=== PATIENT | male | born 1970 | race Caucasian/White ===

== ENCOUNTER → 2017-01-24 | Outpatient (CLI) | payer OTHER ==
[~2017-01-24] MED LIST: HYDR25TA4 PO; LOSA1TAB PO; PRLSR20 PO
--- NOTE | 2017-01-24 12:38 | DIAGNOSTIC IMAGING REPORT ---
CHEST 2 VIEWS ROUTINE CLINICAL HISTORY: Shortness of breath. COMPARISON STUDY: Chest CT February 23, 2016. FINDINGS: Mild cardiomegaly is unchanged. Opacity along the left heart border represents epicardial fat pad as shown on prior chest CT. There is no pneumothorax or pleural effusion. Pulmonary vascularity is normal. There is no consolidation. The appearance of the chest is unchanged. IMPRESSION: 1. No acute cardiopulmonary findings. 2. Stable mild cardiomegaly. Electronically signed by: Jonathon Adame M.D. 01/24/2017 12:37 PM Dictated Date/Time: 01/24/2017 12:35 PM
[2017-01-24 13:06] LABS: MEAN CELL VOLUME 78.9 fL (80-100); MEAN CORPUSCULAR HEMOGLOBIN 26.9 pg (25-34); MEAN CORPUSCULAR HGB CONC 34.1 g/dl (32-36); MEAN PLATELET VOLUME 9.8 fL (7.4-10.4); PLATELET COUNT 283 K/uL (130-400); RED BLOOD COUNT 5.58 M/uL (4.7-6.1); WHITE BLOOD COUNT 6.01 K/uL (4.8-10.8)
[2017-01-24 13:21] LABS: ESTIMATED AVERAGE GLUCOSE 114 mg/dl; HA1C FLAG Normal (Normal)
[2017-01-24 13:36] LABS: ALT/SGPT 42 U/L (12-78); BLOOD UREA NITROGEN 8 mg/dl (7-18); CALCIUM 9.1 mg/dl (8.5-10.1); CARBON DIOXIDE 27 mmol/L (21-32); CHLORIDE 106 mmol/L (98-107); CHOLESTEROL 159 mg/dl (0-200); CREATININE 0.88 mg/dl (0.60-1.40); GLUCOSE 94 mg/dl (70-99); SODIUM 140 mmol/L (136-145)
[2017-01-24 13:39] LABS: ALB/GLOB RATIO 0.9 (0.9-2); ALKALINE PHOSPHATASE 99 U/L (45-117); AST/SGOT 22 U/L (15-37); CHOLESTEROL/HDL RATIO 4.7; HDL CHOLESTEROL 34 mg/dl; LDL CHOLESTEROL CALCULATED 98 mg/dl; TRIGLYCERIDES 133 mg/dl (0-150); VERY LOW DENSITY LIPOPROT CALC 27 mg/dl
--- NOTE | 2017-01-30 11:52 | CODING QUERY MEDICAL NECESSITY ---
CQSUPPORTING DIAGNOSIS NEEDED A supporting diagnosis is required for the test/procedure performed on this patient in order for us to be reimbursed by the patient's insurance. Please provide a supporting diagnosis for the following test/procedure listed below next to the test name along with your signature. *If there is no additional diagnosis for this patient that would support the following test/procedure please document that below next to the test/procedure. Test(s)/Procedure(s) that require a supporting diagnosis: DOS 01/24/17 GLYCATED HEMOGLOBIN TEST Provider Signature: Date: Thank you Zaira Nguyen [facility] Information [facility] Once completed, please kindly fax back to [phone] For questions please call [phone]
== END | disposition home or self-care (01) ==
LOC: C.RAD1850 12:04
PROVIDERS: ATTEND Internal Medicine
DX: Z87.898 Personal history of other specified conditions (principal); I10 Essential (primary) hypertension; R53.83 Other fatigue; E78.1 Pure hyperglyceridemia; R06.00 Dyspnea, unspecified; D64.9 Anemia, unspecified